=== PATIENT | female | born 1990 | race Caucasian/White ===

== ENCOUNTER 2019-01-08 01:45 | Emergency (ER) | payer SELFPAY ==
[2019-01-08] MEDS ORDERED: Amoxicillin 500 MG Cap PO ONE (02:33)
[2019-01-08] MEDS ORDERED: Acetaminophen/HYDROcodone 325-5 MG Tab PO ONE (02:34)
--- NOTE | 2019-01-08 02:38 | EDM.PDOC ---
ED HPI GENERAL MEDICAL PROBLEM - General Chief Complaint: ENT Problem Stated Complaint: TOOTH PAIN Time Seen by Provider: 01/08/19 02:14 Source of Information: Reports: Patient, RN Notes Reviewed - History of Present Illness INITIAL COMMENTS - FREE TEXT/NARRATIVE: 28-year-old female comes in with dental pain. Dates her right upper lateral incisor became painful 2 days ago and has been getting worse and more constant. He has been taken Advil and ibuprofen but not getting meaningful relief. That tooth is not given trouble in the past.No fever chills nausea or vomiting. 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: R ovary removed Social & Family History - Tobacco Use Smoking Status *Q: Current Every Day Smoker Years of Tobacco use: 10 Packs/Tins Daily: 0.5 - Caffeine Use Caffeine Use: Reports: Coffee - Recreational Drug Use Recreational Drug Use: No ED ROS ENT - Review of Systems Review Of Systems: See Below Constitutional: Denies: Fever, Chills HEENT: Reports: Dental Pain Respiratory: Denies: Shortness of Breath, Pleuritic Chest Pain Cardiovascular: Denies: Chest Pain GI/Abdominal: Denies: Abdominal Pain, Nausea, Vomiting Musculoskeletal: Denies: Neck Pain Skin: Denies: Rash ED EXAM, ENT - Physical Exam Exam: See Below General Appearance: Alert, Moderate Distress Eye Exam: Bilateral Eye: PERRL Ears: Normal External Exam Nose: Normal Inspection Mouth/Throat: Dental Pain (Right upper lateral incisor is cavitated, no visible swelling of the gum tissue, no drainage, there is tenderness of the tooth to percussion) Head: No: Facial Swelling, Facial Tenderness Neck: Supple. No: Lymphadenopathy (L), Lymphadenopathy (R) Respiratory/Chest: No Respiratory Distress Course - Vital Signs Last Recorded V/S: Last Vital Signs Temp 97.9 F 01/08/19 01:55 Pulse 68 01/08/19 01:55 Resp 20 01/08/19 01:55 BP 144/104 H 01/08/19 01:55 Pulse Ox 100 01/08/19 01:55 - Orders/Labs/Meds Meds: Medications Discontinued Medications Generic Name Dose Route Start Last Admin Trade Name Castillo PRN Reason Stop Dose Admin Hydrocodone Bitart/Acetaminophen 1 tab 01/08/19 02:34 01/08/19 02:42 [place] 325-5 Mg PO 01/08/19 02:35 1 tab ONETIME ONE Administration Amoxicillin 1,000 mg 01/08/19 02:33 01/08/19 02:42 Amoxil PO 01/08/19 02:34 1,000 mg ONETIME ONE Administration Departure - Departure Time of Disposition: 02:34 Disposition: Home, Self-Care 01 Condition: Fair Clinical Impression: Pain, dental - Discharge Information Prescriptions: Acetaminophen/HYDROcodone [[place] 325-5 MG] 1 tab PO Q6H PRN #14 tablet PRN Reason: Pain Referrals: PCP,None [Primary Care Provider] - Forms: ED Department Discharge Additional Instructions: Amoxicillin 1000 mg twice daily for 1 week or until gone, you can alternate Tylenol and ibuprofen or Aleve for mild to moderate pain, you may take hydrocodone if needed for severe pain but do not take that when driving or working or within 6 hours of driving or working. Do not take Tylenol and hydrocodone at same time. See dentist as soon as possible.
== END 2019-01-08 02:45 | disposition home or self-care (01) ==
LOC: JD.ED 01:45 → EDBD 01:45 → JD.ED 02:45
DX: K02.9 Dental caries, unspecified (principal); K08.89 Other specified disorders of teeth and supporting structures
CPT/HCPCS: 99282; A9270; 99283